=== PATIENT | female | born 1955 | race Caucasian/White ===

== ENCOUNTER 2022-11-17 08:59 | Inpatient (IN) | payer MEDICARE ==
[~2022-11-17] VITALS: Ht 160 cm; Wt 49.9 kg
[~2022-11-17 08:59] MED LIST: FAMOTIDINE/PF INJ 20 MG/2 ML VIAL IV ONE; FENTANYL PF 250MCG/5ML AMPUL ONE; HYDROMORPHONE INJ 2 MG/ML DISP.SYRIN ONE; MIDAZOLAM HCL 2 MG/2ML VIAL ONE; ROCURONIUM BROMIDE 50 MG/5 ML ONE
--- NOTE | 2022-11-17 10:05 | NUR ---
MS RN ADMITTING NOTE PATIENT CAME IN VIA WHEELCHAIR FOR INPATIENT SURGERY FOR RIGHT HIP ARTHROPLASTY TO RM 322 1 AT 1000; PATIENT IS A/O X 4, ALL PRE OPERATIVE DOCUMENTS SIGNED, ABLE TO MAKE NEEDS KNOWN; STABLE ON ROOM AIR, BREATHING EVENLY, ORIENTED TO STAFF AND ROOM; ENCOURAGED VERBALIZATION OF NEEDS; SAFETY MEASURES IMPLEMENTED, BED LOCKED IN LOW POSITION, SIDE RAILS UP X 2, CALL LIGHT AND TABLE WITHIN REACH; WILL CONTINUE TO MONITOR THROUGHOUT SHIFT.
[2022-11-17] MEDS ORDERED: POLYMYXIN B SULFATE 500,000 UNITS ONE (10:24)
[2022-11-17] MEDS ORDERED: TRANEXAMIC ACID 3,000 MG in SODIUM CHLORIDE IRRIG SOLUTION 70 ML IR ONE (10:30)
[2022-11-17] MEDS ORDERED: BUPIVACAINE 0.5 % PF 150 MG/30 ML VIAL ONE (10:38)
[2022-11-17] MEDS ORDERED: BUPIVACAINE 0.25% 75 MG/30 ML VIAL ONE (10:38)
[2022-11-17] MEDS ORDERED: HYDROMORPHONE 1 MG/1 ML DISP.SYRIN ONE (11:54)
[2022-11-17] MEDS ORDERED: SENNOSIDES 8.6 MG TABLET PO PRN (12:30)
[2022-11-17] MEDS ORDERED: ZOLPIDEM TARTRATE 5 MG TABLET PO PRN (12:30)
[2022-11-17] MEDS ORDERED: HYDROMORPHONE 1 MG/1 ML DISP.SYRIN IV PRN (12:30)
[2022-11-17] MEDS ORDERED: BISACODYL SUPP (10 MG) 10 MG/SUPP.RECT SUPP.RECT RC PRN (12:30)
[2022-11-17] MEDS ORDERED: DOCUSATE SODIUM 250 MG CAPSULE PO PRN (12:30)
[2022-11-17] MEDS ORDERED: ACETAMINOPHEN 325 MG TABLET PO PRN ×2 (12:30)
[2022-11-17] MEDS ORDERED: HYDROCODONE/APAP 5/325MG TABLET PO PRN (12:30)
[2022-11-17] MEDS ORDERED: ONDANSETRON HCL/PF 4 MG/2 ML VIAL IV PRN (12:30)
--- NOTE | 2022-11-17 13:03 | NUR ---
RN NOTES PT RETURNED TO UNIT AT 1300 WITH OR NURSE CATALINA. RIGHT TOTAL HIP ARTHOPLASTY WITH ABDUCTOR PILLOW AND TANNER CATHETER. AWAKE, A/O X4. NO C/O PAIN VOICED. V/S TAKEN, STABLE AND RECORDED. FRIENDS AT BEDSIDE. WILL CONTINUE TO MONITOR PT CLOSELY.
[2022-11-17] MEDS: IV LR 1000 ML 1,000 ML IV PRN (13:14)
--- NOTE | 2022-11-17 15:51 | NUR ---
RN NOTES PATIENT COMPLAINED OF RIGHT HIP PAIN. RATE 01/31. NORCO 5-325 2TABLETS GIVEN. WILL CONTINUE TO MONITOR PATIENT.
[2022-11-17 16:00] VITALS: BP 102/65
[2022-11-17] MEDS: ASPIRIN EC 81 MG TABLET.DR PO SCH (17:20)
[2022-11-17] MEDS: ANCEF 1 GM/50 ML D5W IV SCH ×2 (18:37)
--- NOTE | 2022-11-17 18:57 | NUR ---
MS RN CLOSING NOTE PT AWAKE IN BED. A/O X4 AND ABLE TO MAKE NEEDS KNOWN. PT STABLE ON ROOM AIR. NO SOB OR S/S OF RESPIRATORY DISTRESS. BREATHING EVEN AND UNLABORED. IV ACCESS LEFT HAND 20 G WITH LR @100ML/HR, INTACT, PATENT, AND INFUSING WELL. RIGHT HIP ARTHROPLASTY SURGERY, DRESSING C/D/I. TANNER CATHETER @ 300ML. NO COMPLAINTS OF PAIN OR DISCOMFORT AT THIS TIME. ALL DUE MEDS GIVEN ORDERED. SAFETY PRECAUTIONS IN PLACE. BED IN LOWEST LOCKED POSITION, HOB ELEVATED, SIDE RAILS UP X2, AND CALL LIGHT AND TABLE WITHIN REACH. ALL NEEDS MET AT THIS TIME. WILL ENDORSE TO THE HUB ASSOCIATE NURSE FOR EVITA.
[2022-11-17] MEDS ORDERED: oxyCODONE IR immediate release 5 MG PO ONE (19:01)
--- NOTE | 2022-11-17 19:20 | NUR ---
MS RN OPENING NOTES - RECEIVED PATIENT AWAKE IN BED. A/O X4. BREATHING EVEN AND NON-LABORED ON ROOM AIR. IN MILD DISTRESS D/T ACUTE RIGHT HIP PAIN 10/10 THAT WAS NOT RELIEVED BY NORCO. HAS LEFT HAND IV ACCESS #20G WITH LR RUNNING AT 100 ML/HR. NO S/S OF INFILTRATION NOTED. RIGHT HIP SURGICAL DRESSING DRY AND INTACT. BILATERAL LEG IMMOBILIZER AND DVT PUMPS IN PLACE. SACRAL PRESSURE ULCER NOTED. COVERED WITH MEPILEX AND WILL ORDER WOUND CARE CONSULT. SAFETY PRECAUTIONS IN PLACE: BED LOCKED AND IN LOW POSITION, SIDE RAILS UP X2, CALL LIGHT WITHIN REACH. WILL CONTINUE PLAN OF CARE.
[2022-11-17] MEDS ORDERED: MAG HYDROX/AL HYDROX/SIMETH 30 ML UDC PO PRN (19:30)
[2022-11-17] MEDS ORDERED: MENTHOL/CETYLPYRD (CEPACOL) 1 LOZ LOZENGE PO PRN (19:30)
[2022-11-17] MEDS ORDERED: diphenhydrAMINE HCL 25 MG CAPSULE PO PRN (19:30)
[2022-11-17] MEDS ORDERED: MAGNESIUM HYDROXIDE 30 ML UDC PO PRN (19:30)
[2022-11-17 20:00] VITALS: BP 105/82
[2022-11-17] MEDS: TIZANIDINE HCL 4 MG TABLET PO PRN (20:33)
[2022-11-17] MEDS: FAMOTIDINE (20 MG) 20 MG TABLET PO SCH (20:33)
[2022-11-17] MEDS: HYDROMORPHONE 1 MG/1 ML DISP.SYRIN IV PRN ×2 (20:44→23:47)
--- NOTE | 2022-11-17 21:10 | NUR ---
STILL C/O BREAKTHROUGH RIGHT HIP PAIN 9/10 AFTER OXY IR 20MG. PATIENT WAS RESTLESS, AGITATED AND CURSING. ADMINISTERED PRN DILAUDID 0.5MG, WILL CONTINUE TO MONITOR.
[2022-11-17 23:45] VITALS: BP 103/67
[2022-11-18] MEDS: oxyCODONE IR immediate release 5 MG PO PRN ×6 (00:33→20:37)
[2022-11-18] MEDS: IV LR 1000 ML 1,000 ML IV PRN ×3 (00:39→22:19)
[2022-11-18] MEDS: ANCEF 1 GM/50 ML D5W IV SCH ×2 (01:02)
[2022-11-18] MEDS: TIZANIDINE HCL 4 MG TABLET PO PRN ×2 (05:43→18:07)
--- NOTE | 2022-11-18 06:03 | NUR ---
C/O RIGHT HIP PAIN 01/31. PATIENT ALSO REQUESTED TO TAKE HER TIZANIDINE TOGETHER WITH HER OXY IR SINCE THIS IS WHAT SHE DOES AT HOME. GIVEN PRN MEDS AND REPOSITIONED.
--- NOTE | 2022-11-18 06:43 | NUR ---
REQUESTING TO KEEP HER TANNER CATHETER IN SINCE SHE IS HAVING DIFFICULTY MOVING SPECIALLY IF SHE WILL USE THE BED GONSALES. DR. AMAYA AWARE AND APPROVED TO HOLD REMOVAL OF IFC.
--- NOTE | 2022-11-18 07:15 | NUR ---
MS RN CLOSING NOTES - PATIENT SLEEPING, EASY TO AROUSE. ABLE TO VERBALIZE NEEDS. NO CARDIAC OR RESPIRATORY DISTRESS THROUGHOUT THE NIGHT. AFEBRILE. PAIN MANAGEMENT ORDERED. RE-INSERTED IV ACCESS TO RIGHT HAND #22G INTACT, PATENT AND FLUSHING. SANGUINEOUS DRAINAGE NOTED ON SURGICAL DRESSING. INDWELLING TANNER CATHETER DRAINING CLEAR DARK YELLOW URINE TO BAG BY GRAVITY. OFFLOADED BUTTOCKS AND REPOSITIONED. ALL DUE MEDS GIVEN AND NEEDS ATTENDED. SAFETY PRECAUTIONS MAINTAINED. WILL ENDORSE TO NEXT SHIFT FOR EVITA.
[2022-11-18 07:24] LABS: BASOPHILS % (AUTO) 0.2 % (0.0-2.0); HEMATOCRIT 26 % (33-45); HEMOGLOBIN 8.7 g/dL (11.5-14.8); LYMPHOCYTES # (AUTO) 1.3 K/uL (0.8-4.8); LYMPHOCYTES % (AUTO) 21.8 % (20.0-44.0); MEAN CORPUSCULAR HGB CONC 33 g/dl (31.0-36.0); MEAN CORPUSCULAR VOLUME 93 fL (82-100); MONOCYTES # (AUTO) 0.6 K/uL (0.1-1.30); MONOCYTES % (AUTO) 10.1 % (2.0-12.0); NEUTROPHILS # (AUTO) 3.9 K/uL (1.8-8.9); NEUTROPHILS % (AUTO) 65.9 % (43.0-81.0); PLATELET COUNT (AUTO) 255 K/uL (150-450); RED BLOOD CELL COUNT(AUTO) 2.82 MIL/uL (4.0-5.2); WHITE BLOOD COUNT (AUTO) 5.9 K/uL (4.3-11.0)
--- NOTE | 2022-11-18 08:05 | NUR ---
MS RN OPENING NOTES PATIENT SLEEPING, EASY TO AROUSE. ABLE TO VERBALIZE NEEDS. NO CARDIAC OR RESPIRATORY DISTRESS THROUGHOUT THE NIGHT. AFEBRILE. PAIN MANAGEMENT ORDERED. IV ACCESS TO RIGHT HAND #22G INTACT, PATENT AND FLUSHING. SAFETY PRECAUTIONS MAINTAINED. WILL CONTINUE TO MONITOR.
--- NOTE | 2022-11-18 08:29 | NUR ---
WOUND CARE CONSULT: PT ADAMANTLY REFUSED SKIN ASSESSMENT AND WAS ANGRY AND SARCASTIC WHEN ASKED ABOUT HER SACRAL PRESSURE ULCER. PT STATES HAS HAD SACRAL WOUND FOR A MONTH AND THAT SHE IS TREATING IT HERSELF. RECOMMEND SURGICAL CONSULT. DR BRAMBILA CALLED FOR CONSULT. DISCUSSED SKIN PROTECTION WITH NURSING STAFF. MD IN AGREEMENT WITH PLAN OF CARE.
[2022-11-18 08:41] VITALS: BP 84/53
[2022-11-18 08:42] VITALS: BP 140/73
[2022-11-18] MEDS: ASPIRIN EC 81 MG TABLET.DR PO SCH ×2 (08:57→17:02)
[2022-11-18] MEDS: DOCUSATE SODIUM 100 MG CAPSULE PO SCH ×2 (08:57→17:02)
[2022-11-18] MEDS: FAMOTIDINE (20 MG) 20 MG TABLET PO SCH ×2 (08:58→22:12)
[2022-11-18] MEDS ORDERED: DOCU-141 PO (11:33)
[2022-11-18] MEDS ORDERED: GABA800T11 PO (11:33)
[2022-11-18] MEDS ORDERED: TRIA1TAB3 PO (11:33)
[2022-11-18] MEDS ORDERED: DIPH1TAB28 PO (11:33)
[2022-11-18] MEDS ORDERED: MUPI22OI7 TP (11:33)
[2022-11-18] MEDS ORDERED: SILV50CR32 TP (11:33)
[2022-11-18] MEDS ORDERED: CETI-108 PO (11:33)
[2022-11-18] MEDS ORDERED: TIZA-180 PO (11:33)
[2022-11-18 16:08] VITALS: BP 81/50
--- NOTE | 2022-11-18 17:47 | NUR ---
RN NOTES Patient Blood pressure was around 90/50-60, slightly elavated lower leg with no issues. Patient refused to remove Munguia catheter, Cynthia Lanza made aware.
--- NOTE | 2022-11-18 18:18 | NUR ---
MS RN CLOSING NOTES PATIENT SLEEPING, EASY TO AROUSE. ABLE TO VERBALIZE NEEDS. NO CARDIAC OR RESPIRATORY DISTRESS THROUGHOUT THE SHIFT. AFEBRILE. PAIN MANAGEMENT RENDERED, ALL NEEDS ATTENDED. SURGICAL SITE DRY AND INTACT WITH NO BLEEDING AND SWELLING NOTED. IV ACCESS TO RIGHT HAND #22G INTACT, PATENT AND FLUSHING. SAFETY PRECAUTIONS MAINTAINED. WILL ENDORSED TO NIGHT NURSE FOR EVITA.
--- NOTE | 2022-11-18 19:26 | NUR ---
MS RN OPENING NOTES: RECEIVED PATIENT AWAKE IN BED, BED IN LOW POSITION CALL LIGHTS WITHIN REACH, NO COMPLAIN OF PAIN AND DISCOMFORT AT THIS TIME, ON ROOM AIR SATURATING WELL, PATIENT IS A/O X4 ABLE TO MAKE NEEDS KNOWN, IV LINE AT RIGHT HAND #22 WITH ONGOING [id number] INFUSING WELL, ON PAIN MANAGEMENT, ON TANNER CATHETER-100CC URINE OUTPUT, PATIENT KEPT CLEAN AND DRY ALL NEEDS MET WILL CONTINUE TO MONITOR.
[2022-11-18 20:00] VITALS: BP 70/45
[2022-11-19] MEDS ORDERED: IV NS 0.9% 500 ML IV ONE (01:08)
--- NOTE | 2022-11-19 01:12 | NUR ---
RN NOTES; PATIENT WAS NOTED WITH LOW BP INITIAL BP-70/44, HR-56, REPEAT AT LEFT ARM MANUALLY, BP-80/54 HR-58, PATIENT REMAINS VERBALLY RESPONSIVE, NO COMPLAIN OF PAIN AND DISCOMFORT PATIENT IS S/P RIGHT TOTAL HIP ARTHROPLASTY NO BLEEDING WAS OBSERVED ON THE SITE, NOTIFY ASSEMBLY LINE WORKER NANCY AND ORDERED A BOLUS OF ONE TIME OF 0.9NSS 500ML AND CBC IN AM NOTED AND CARRY OUT. WILL CONTINUE TO MONITOR
[2022-11-19] MEDS: oxyCODONE IR immediate release 5 MG PO PRN ×2 (04:01→19:54)
[2022-11-19 05:58] LABS: BASOPHILS % (AUTO) 0.3 % (0.0-2.0); EOSINOPHILS % (AUTO) 2.2 % (0.0-6.0); HEMATOCRIT 24 % (33-45); HEMOGLOBIN 7.9 g/dL (11.5-14.8); LYMPHOCYTES # (AUTO) 1.8 K/uL (0.8-4.8); LYMPHOCYTES % (AUTO) 19.2 % (20.0-44.0); MEAN CORPUSCULAR HGB CONC 33 g/dl (31.0-36.0); MEAN CORPUSCULAR VOLUME 91 fL (82-100); MONOCYTES # (AUTO) 1.1 K/uL (0.1-1.30); MONOCYTES % (AUTO) 12.2 % (2.0-12.0); NEUTROPHILS % (AUTO) 66.1 % (43.0-81.0); PLATELET COUNT (AUTO) 210 K/uL (150-450); WHITE BLOOD COUNT (AUTO) 9.2 K/uL (4.3-11.0)
[2022-11-19] MEDS: TIZANIDINE HCL 4 MG TABLET PO PRN ×2 (06:00→23:37)
[2022-11-19 06:21] LABS: CALCIUM, SERUM 8.3 mg/dL (8.5-10.1); CREATININE 0.5 mg/dL (0.6-1.3); MAGNESIUM 1.3 mg/dL (1.8-2.4); POTASSIUM 4.2 mmol/L (3.5-5.1)
--- NOTE | 2022-11-19 07:40 | NUR ---
MS RN CLOSING NOTES: PATIENT SLEEP IN BED COMFORTABLY, AROUSABLE TO VERBAL STIMULI, BED IN LOW POSITION, CALL LIGHTS WITHIN REACH, NO COMPLAIN OF PAIN AND DISCOMFORT AT THIS TIME, ON ROOM AIR SATURATING WELL, PATIENT IS A/O X3-4 ABLE TO MAKE NEEDS KNOWN, ON PAIN MANAGEMENT, IV LINE AT RIGHT HAND #22 WITH ONGOING [id number] INFUSING WELL, PATIENT KEPT CLEAN AND DRY ALL NEEDS MET ENDORSE TO INCOMING SHIFT.
--- NOTE | 2022-11-19 08:04 | NUR ---
MS RN OPENING NOTES: PATIENT AWAKE IN BED A/O X3 WITH EPISODES OF CONFUSION. NO COMPLAIN OF PAIN AND DISCOMFORT AT THIS TIME, ON ROOM AIR SATURATING WELL, ON PAIN MANAGEMENT, IV LINE AT RIGHT HAND #22 WITH ONGOING PLR 100ML/HR INFUSING WELL. SAFETY MEASURES IN PLACE. KEPT BED IN LOCKED AND IN LOW POSITION. SIDE RAILS UP X2. ADVISED TO USE THE CALL LIGHT WHEN IN NEED OF ASSISTANCE. WILL MONITOR.
[2022-11-19] MEDS: FAMOTIDINE (20 MG) 20 MG TABLET PO SCH ×2 (09:13→21:51)
[2022-11-19] MEDS: ASPIRIN EC 81 MG TABLET.DR PO SCH ×2 (09:13→16:56)
[2022-11-19] MEDS: DOCUSATE SODIUM 100 MG CAPSULE PO SCH ×2 (09:13→16:58)
[2022-11-19] MEDS: HYDROGEL DRESSING 90 GM TUBE TP SCH (09:22)
[2022-11-19] MEDS ORDERED: MAGNESIUM OXIDE 400 MG TABLET PO ONE (09:30)
[2022-11-19 09:44] VITALS: BP 78/46
[2022-11-19] MEDS ORDERED: IV NS 0.9% 1,000 ML IV ONE (11:30)
[2022-11-19] MEDS: PROSOURCE / PROSTAT (PYXIS) 30 ML UDC GT SCH ×3 (12:51→16:57)
[2022-11-19 15:48] VITALS: BP 80/52
[2022-11-19] MEDS ORDERED: NEUTRA PHOS 1 POWD.PACKET PO ONE (16:00)
[2022-11-19] MEDS ORDERED: PROSOURCE / PROSTAT (PYXIS) 30 ML UDC GT SCH (17:00)
[2022-11-19] MEDS: IV LR 1000 ML 1,000 ML IV PRN (17:13)
[2022-11-19] MEDS: ENSURE ENLIVE 237 ML LIQUID (VANILLA) PO SCH (17:37)
--- NOTE | 2022-11-19 19:30 | NUR ---
noc rn opening note received patient in bed, a/ox4. exhibiting no s/s of apparent distress on room air. patient c/o 01/01 pain-- BP to be check and will medicate, ice pack in place for now. R. hip dressing dry and intact, with minimal dry blood. Right hand #22g IV access running LR @100mls/hr. safety in place-- bed in lowest, locked position, call light within reach, side rails up X3. Will continue with patient's plan of care.
--- NOTE | 2022-11-19 19:36 | NUR ---
MS RN CLOSING NOTES: PATIENT AWAKE IN BED A/O X3 WITH EPISODES OF CONFUSION. ON ROOM AIR SATURATING WELL, ON PAIN MANAGEMENT, IV LINE AT RIGHT HAND #22 WITH ONGOING PLR 100ML/HR INFUSING WELL. SAFETY MEASURES IN PLACE. KEPT BED IN LOCKED AND IN LOW POSITION. SIDE RAILS UP X2. PATIENT'S BLOOD PRESSURE REMAINED ON 80/50'S, PRN PAIN MEDS NOT GIVEN DUE TO LOW BP, ENCOURAGED OTHER THERAPEUTIC INTERVENTIONS SUCH BREATHING TECHNIQUE AND APPLICATION OF COLD COMPRESS. ADVISED TO USE THE CALL LIGHT WHEN IN NEED OF ASSISTANCE. WILL ENDORSED TO NEXT NIGHT NURSE.
--- NOTE | 2022-11-19 19:58 | NUR ---
noc rn note patient c/o 6/10 pain on her right knee radiating to the leg, patient blood pressure 100/58, given Oxy IR 20mg as ordered PRN. will re-assess.
[2022-11-19 20:00] VITALS: BP 100/69
--- NOTE | 2022-11-19 23:48 | NUR ---
noc rn note patient requesting for her Zanaflex. blood pressure 108/62, given as ordered PRN for spasm and insomnia.
[2022-11-19 23:59] VITALS: BP 108/62
[2022-11-20] MEDS: IV LR 1000 ML 1,000 ML IV PRN (03:53)
--- NOTE | 2022-11-20 04:35 | NUR ---
noc rn note Patient has no noted urine after 8 hrs hence did bladder scan with 381ml of urine. Patient was put in fx reina and messaged hospitalist Shira Alexander, but after messaging Shira alexander Patient was able to pee in the reina with output of 300ml. No in and out cath needed. will monitor.
[2022-11-20] MEDS: oxyCODONE IR immediate release 5 MG PO PRN ×3 (06:26→16:55)
--- NOTE | 2022-11-20 06:29 | NUR ---
noc rn note patient c/o 6/10 pain on her hip. blood pressure 104/64 hr 60. Given Oxy IR 20mg as ordered PRN. will re-assess.
--- NOTE | 2022-11-20 06:47 | NUR ---
noc rn note Patient verbalizing emotion and frustration right now about her situation and to quote "I have something to be depressed about". disclosing that she used to take clozapine at home wanting to take it again. will call her home health care physician as patient request, to verify the medication. Patient teaching was done and emotional support given. will try to contact home health care physician and will endorse to morning shift rn.
--- NOTE | 2022-11-20 07:01 | NUR ---
noc rn note Tried calling care center manager Barb Gallegose # [phone], was transferred to automated voicemail. Left a message.
--- NOTE | 2022-11-20 07:06 | NUR ---
noc rn note Patient in bed, with eyes closed. no s/s of apparent distress on room air. pain managed with medications. Patient was able to pee after duran catheter removal. IV LR running @100mls/hr. all needs attended. all scheduled medications administered. safety kept in place the whole shift. will endorse to morning shift rn for continuity of patient care.
--- NOTE | 2022-11-20 07:25 | NUR ---
RN Opening Note Received patient in bed, awake. A/O x 4, able to make needs known. No c/o pain/discomfort at this time. On room air, tolerating well. Right hip dressing, clean, dry and intact with minimal dry blood. IV access in right hand #22g with ongoing LR @100mls/hr, infusing well. Safety measures in place: bed in lowest locked position, call light and tray table within reach, side rails up x 3. Will continue to monitor.
[2022-11-20 08:00] VITALS: BP 98/64
[2022-11-20 08:27] LABS: BASOPHILS % (AUTO) 0.4 % (0.0-2.0); EOSINOPHILS % (AUTO) 1.8 % (0.0-6.0); HEMATOCRIT 23 % (33-45); HEMOGLOBIN 7.6 g/dL (11.5-14.8); LYMPHOCYTES # (AUTO) 1.3 K/uL (0.8-4.8); LYMPHOCYTES % (AUTO) 16.7 % (20.0-44.0); MEAN CORPUSCULAR HGB CONC 33 g/dl (31.0-36.0); MEAN CORPUSCULAR VOLUME 94 fL (82-100); MONOCYTES # (AUTO) 0.8 K/uL (0.1-1.30); MONOCYTES % (AUTO) 10.2 % (2.0-12.0); NEUTROPHILS # (AUTO) 5.7 K/uL (1.8-8.9); NEUTROPHILS % (AUTO) 70.9 % (43.0-81.0); PLATELET COUNT (AUTO) 199 K/uL (150-450)
[2022-11-20] MEDS: DOCUSATE SODIUM 100 MG CAPSULE PO SCH ×2 (09:00→16:56)
[2022-11-20] MEDS: HYDROGEL DRESSING 90 GM TUBE TP SCH (09:00)
[2022-11-20] MEDS: ASPIRIN EC 81 MG TABLET.DR PO SCH ×2 (09:25→16:50)
[2022-11-20] MEDS: ENSURE ENLIVE 237 ML LIQUID (VANILLA) PO SCH ×2 (09:25→16:50)
[2022-11-20] MEDS: PROSOURCE / PROSTAT (PYXIS) 30 ML UDC GT SCH ×3 (09:25→16:50)
[2022-11-20] MEDS: FAMOTIDINE (20 MG) 20 MG TABLET PO SCH (09:25)
--- NOTE | 2022-11-20 09:49 | NUR ---
RN NOTES Patient refused to take colace due 0900. Patient verbalized she had diarrhea yesterday.
--- NOTE | 2022-11-20 10:32 | NUR ---
RN NOTES Patient verbalized she has right hip pain with scale 8/10, BP-108/67, Oxy IR 20mg po prn given at 10:28, will continue to monitor.
[2022-11-20] MEDS: TIZANIDINE HCL 4 MG TABLET PO PRN (11:50)
[2022-11-20] MEDS ORDERED: NEUTRA PHOS 1 POWD.PACKET PO ONE (13:00)
[2022-11-20 16:00] VITALS: BP 101/52
--- NOTE | 2022-11-20 17:00 | NUR ---
RN NOTES Patient verbalized she has right hip pain with scale 8/10, BP-101/60, Oxy IR 20mg po prn given at 16:55, will continue to monitor.
--- NOTE | 2022-11-20 18:16 | NUR ---
SUGAR PRESSER NOTES Patient discharged to [facility] in stable condition. A/O x 4, no pain/discomfort at this time. On room air, tolerated well. Vital signs stable and recorded. Discharged instructions given to patient, verbalized understanding. Report given to MONICA Zhou. All belongings accounted for. Photo taken for skin issue. IV access removed, clean and dry dressing applied to site. Patient left the unit at 1805 via gurney accompanied by 2 TRANSPLANT SURGEON. MD and Charge Nurse aware of d/c.
== END 2022-11-20 18:16 | DRG 463 ==
LOC: EDBD → DS 08:59 → MED 09:01
PROVIDERS: ADMIT Nurse Practitioner Acute Care; ATTEND Internal Medicine
PROC: 0SR90JZ Replacement of Right Hip Joint with Synthetic Substitute, Open Approach (ICD-10-PCS; principal; 2022-11-17)
PROC: 0JB70ZZ Excision of Back Subcutaneous Tissue and Fascia, Open Approach (ICD-10-PCS; 2022-11-19)
DX: S72.091A Other fracture of head and neck of right femur, initial encounter for closed fracture (principal); L89.153 Pressure ulcer of sacral region, stage 3; D68.59 Other primary thrombophilia; E46 Unspecified protein-calorie malnutrition; M16.11 Unilateral primary osteoarthritis, right hip; G89.4 Chronic pain syndrome; D64.9 Anemia, unspecified; Z79.891 Long term (current) use of opiate analgesic; Z88.0 Allergy status to penicillin; Z99.3 Dependence on wheelchair; Z86.19 Personal history of other infectious and parasitic diseases; W19.XXXA Unspecified fall, initial encounter; Y92.009 Unspecified place in unspecified non-institutional (private) residence as the place of occurrence of the external cause; Z88.8 Allergy status to other drugs, medicaments and biological substances
CPT/HCPCS: 36415; 80048-TC; 83735-TC; 84100-TC; 85025-TC; 87081-TC; 88305-TC; 88311-TC; 97110-TC; 97112-TC; 97530-TC; A4217; A6209; A6248; A6402; C1776; G0378; J0690; J1170; J2250; J2405; J2704; J2765; J3010; J3490; J7030; J7040; J7060; J7120